=== PATIENT | female | born 1960 | race Caucasian/White ===

== ENCOUNTER → 2016-09-26 | Outpatient (CLI) | payer MEDICAID ==
[~2016-09-26] MED LIST: ADVAIR 250/5028 PUFF IN; DICLOFENAC 50MG50 MG PO; HYDROCHLOROTH12.5 M1 PO; LOSARTAN POTASS50 MG PO; NAPROXEN500 M1 PO; SPIRIVA HA1 PUFF/INH IH; VENTOLIN H0.09 MG/AC IH; ZUBSOLV1 TA1 SL
--- NOTE | 2016-09-26 10:00 | RADIOLOGY REPORT PS360 ---
MRI-C-SPINE W/O, MRI-3D RENDERING/MYELOGRAM HISTORY: Neck pain, bilateral shoulder pain, left arm pain and numbness and tingling NECK PAIN ORDERING PHYSICIAN: Javi Blankenship MD PATIENT AGE: 55 years COMPARISON: None TECHNIQUE: Standard multiplanar multiecho sequences are performed without contrast. 3-D MIP and myelographic images are also rendered and reviewed FINDINGS: There is slight reversal of the cervical lordosis which may be seen with patient positioning or muscle spasm. The craniocervical junction has an unremarkable appearance. C2-C3: Unremarkable. C3-C4: Mild facet hypertrophic change on the right with mild right-sided foraminal narrowing. C4-C5: Minimal anterolisthesis of C4 X 2 mm with minimal facet hypertrophic change. C5-C6: Degenerative disc disease with endplate osteophytes. There is a broad-based central and left paracentral disc osteophyte complex with resultant narrowing of the spinal canal and also with left lateral recess and moderate left-sided foraminal narrowing. In addition, there is a small right foraminal disc protrusion/herniation with moderate right foraminal narrowing. C6-C7: Degenerative disc disease with bulging disc and a small right paracentral disc protrusion with mild right lateral recess narrowing. C7-T1: Unremarkable. The spinal cord has an unremarkable appearance. IMPRESSION: 1. Degenerative disc disease at C5-C6 with a broad-based central and left paracentral disc osteophyte complex with resultant narrowing of the spinal canal and also with left lateral recess and moderate left-sided foraminal narrowing. In addition, there is a small right foraminal disc protrusion/herniation with moderate right foraminal narrowing. 2. Degenerative disc disease C6-C7 with bulging disc and a small right paracentral disc protrusion with mild right lateral recess narrowing.
== END ==
LOC: RAD 08:00
DX: M54.2 Cervicalgia (principal)

== ENCOUNTER → 2016-11-15 | Day surgery (SDC) | payer MEDICAID ==
[~2016-11-15] VITALS: Ht 170.2 cm; Wt 77.1 kg
[2016-11-15 13:42] VITALS: BP 123/74
[2016-11-15 13:57] VITALS: BP 123/74
[2016-11-15 13:58] VITALS: BP 138/69
--- NOTE | 2016-11-15 14:03 | Procedure Note ---
Procedure detail Date of procedure: 11/15/16 Anesthesiologist: Cleveland Osorio Complications: None Pre-procedure diagnosis: Degenerative disease cervical spine multiple levels. Multilevel cervical disc bulge. Cervical radiculopathy symptoms. Post-procedure diagnosis: Same. Indications for procedure: Very pleasant 55-year-old white female presents to procedure clinic today for her first cervical epidural steroid injections the C6-7 level. Patient's cervical MRI shows degenerative disc disease cervical spine multiple levels and multiple disc bulge cervical spine. Patient complains of cervical radicular symptoms in bilateral shoulders. Procedure detail: Procedure:Cervical epidural steroid injection Informed consent was obtained and the risks and benefits of the procedure were explained to the patient. The patient was taken to the procedure room and noninvasive monitors placed, including noninvasive blood pressure cuff and pulse oximeter. The neck was prepped using Betadine as a cleansing solution. The C6-C7 interspace was palpated. The skin and subcutaneous tissues were anesthetized using lidocaine 1.5% and a 25-gauge needle. After this an 18-gauge Touhy epidural needle was placed into the C6-C7 interspace and advanced using loss of resistance to air until the epidural space was encountered. After confirmation of needle placement in the epidural space using contrast dye, a solution containing lidocaine 1.5%, 4 mL and Depo-Medrol 80 mg was incrementally injected into the cervical epidural space.~ The patient tolerated the procedure well with no complications. The patient was observed in the Pain Clinic and then discharged home neurologically intact. Plan and disposition: Patient was evaluated 10 minutes post procedure. She's doing very well. She'll return to see us in the pain clinic for further evaluation. at 1402
[2016-11-15 14:14] VITALS: BP 119/72
== END ==
LOC: PM 11-08 14:00
PROC: 3E0R3BZ Introduction of Anesthetic Agent into Spinal Canal, Percutaneous Approach (ICD-10-PCS; principal; 2016-11-15)
PROC: 3E0R33Z Introduction of Anti-inflammatory into Spinal Canal, Percutaneous Approach (ICD-10-PCS; 2016-11-15)
DX: M50.10 Cervical disc disorder with radiculopathy, unspecified cervical region (principal)
CPT/HCPCS: J1040; Q9966

== ENCOUNTER 2017-01-10 15:25 | Day surgery (SDC) | payer MEDICAID ==
[~2017-01-10] VITALS: Ht 170.2 cm; Wt 77.1 kg
[2017-01-10 15:43] VITALS: BP 101/55
[2017-01-10 16:10] VITALS: BP 101/55
[2017-01-10 16:17] VITALS: BP 132/85
--- NOTE | 2017-01-10 16:21 | Procedure Note ---
Procedure detail Date of procedure: 01/10/17 Anesthesiologist: Cleveland Osorio Complications: None Pre-procedure diagnosis: Degenerative disc disease cervical spine multiple levels. Cervical radiculopathy symptoms. Post-procedure diagnosis: Same. Indications for procedure: Very pleasant 56-year-old white female the comes our procedural clinic today for a therapeutic cervical epidural steroid injection. She's had significant relief in terms of her cervical neck pain as well as bilateral arm radicular symptoms with previous cervical epidural steroid injections. Procedure detail: Procedure:Cervical epidural steroid injection Informed consent was obtained and the risks and benefits of the procedure were explained to the patient. The patient was taken to the procedure room and noninvasive monitors placed, including noninvasive blood pressure cuff and pulse oximeter. The neck was prepped using Betadine as a cleansing solution. The C6-C7 interspace was palpated. The skin and subcutaneous tissues were anesthetized using lidocaine 1.5% and a 25-gauge needle. After this an 18-gauge Touhy epidural needle was placed into the C6-C7 interspace and advanced using loss of resistance to air and fluoroscopy guidance until the epidural space was encountered. After confirmation of needle placement in the epidural space, a solution containing lidocaine 1.5%, 4 mL and Depo-Medrol 80 mg was incrementally injected into the cervical epidural space.~ The patient tolerated the procedure well with no complications. The patient was observed in the Pain Clinic and then discharged home neurologically intact. Plan and disposition: Patient was evaluated 10 minutes post procedure. She can very well. She'll return to see us in the pain clinic for further evaluation. at 1620
[2017-01-10 16:27] VITALS: BP 125/80
== END 2017-01-10 16:29 | disposition home or self-care (01) ==
LOC: PM 15:25
PROC: 3E0R3BZ Introduction of Anesthetic Agent into Spinal Canal, Percutaneous Approach (ICD-10-PCS; principal; 2017-01-10)
PROC: 3E0R33Z Introduction of Anti-inflammatory into Spinal Canal, Percutaneous Approach (ICD-10-PCS; 2017-01-10)
PROC: B01B1ZZ Fluoroscopy of Spinal Cord using Low Osmolar Contrast (ICD-10-PCS; 2017-01-10)
DX: M50.10 Cervical disc disorder with radiculopathy, unspecified cervical region (principal)
CPT/HCPCS: J1040; Q9966